=== PATIENT | female | born 1970 | race Caucasian/White ===

== ENCOUNTER 2020-03-07 13:18 | Emergency (ER) | payer BC ==
--- NOTE | 2020-03-07 13:26 | EDM.PDOC ---
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 She reports that she typically has "normal periods" which last anywhere from 5 to 7 days and has to change a pad or tampon every 5 or 6 hours. Today she has been having to change a pad/tampon every 2 hours. She has some mild low abdominal discomfort. Patient denies any fever, chills, headache, change in vision, dizziness, syncope or near syncope. Denies any chest pain, back pain, shortness of breath or cough. Denies any nausea, vomiting, diarrhea, constipation or dysuria. Has not noted any blood in urine or stool. Patient has been eating and drinking appropriately. Review of systems: As per history of present illness and below otherwise all systems reviewed and negative. Past medical history: As per history of present illness and as reviewed below otherwise noncontributory. Surgical history: As per history of present illness and as reviewed below otherwise noncontributory. Social history: See social history for further information Family history: As per history of present illness and as reviewed below otherwise noncontributory. Physical exam: General: Well developed and well nourished 49-year-old female. Alert and oriented. Nontoxic-appearing and in no acute distress. HEENT: Atraumatic, normocephalic, pupils equal and reactive bilaterally, negative for conjunctival pallor or scleral icterus, mucous membranes moist, TMs normal bilaterally, throat clear, neck supple, nontender, trachea midline. No drooling or trismus noted. No meningeal signs. No hot potato voice noted. Lungs: Clear to auscultation, breath sounds equal bilaterally, chest nontender. Heart: S1S2, regular rate and rhythm without overt murmur Abdomen: Soft, nondistended, nontender. Negative for masses or hepatospleno megaly. Negative for costovertebral tenderness. Pelvis: Stable nontender. Genitourinary: This was done with consent and a hand glove cleaner at the bedside. External genitalia is within normal limits. Cervical office is closed with minimal bleeding. Tolerated well. Skin: Intact, warm, dry. No lesions or rashes noted. Extremities: Atraumatic, moves all extremities per self without difficulty or deficits, negative for cords or calf pain. Neurovascular unremarkable. Neuro: Awake, alert, oriented. Cranial nerves II through XII unremarkable. Cerebellum unremarkable. Motor and sensory unremarkable throughout. Exam nonfocal. Notes: Ultrasound shows multiple small fibroids within the uterus. The endometrial thickness is 1.5 cm. Cervix show multiple cysts. Good blood flow to both ovaries. No free fluid is seen. Lab work is unremarkable. Patient states that she feels healthy and well and appropriate for discharge. I did give her numbers for the SINGLE WIRE SAW OPERATOR clinics for further care and management. We discussed in great length signs and symptoms that would prompt her to return to the emergency room. Supportive care measures were reviewed and discussed. Voices understanding and is agreeable to plan of care. Denies any further questions or concerns at this time. Diagnostics: CBC, CMP, UA, urine , non-OB ultrasound Therapeutics: None Prescription: None Impression: Dysfunctional uterine bleeding Plan: 1. Your lab work is within normal limits, no concerning findings at this time. Your ultrasound shows multiple small fibroids within the uterus and multiple cysts on your cervix. Continue to monitor your symptoms. If your symptoms should worsen, new symptoms develop or any of the signs and symptoms we discussed should arise please return to the emergency room or call 911 (if needed). 2. Please follow-up with one of our SINGLE WIRE SAW OPERATOR's for reevaluation and further management of your heavy menses. Definitive disposition and diagnosis as appropriate pending reevaluation and rev iew of above. - Related Data Allergies Allergy/AdvReac Type Severity Reaction Status Date / Time sulfamethoxazole Allergy Other Verified 03/07/20 14:55 [From Bactrim] trimethoprim [From Bactrim] Allergy Other Verified 03/07/20 14:55 Home Meds: Home Meds Multivitamin [Multivitamins] 1 each PO DAILY 03/07/20 [History] ED ROS GENERAL - Review of Systems Review Of Systems: Comprehensive ROS is negative, except as noted in HPI. ED EXAM - Physical Exam Exam: See Below (See dictation) Course - Vital Signs Last Recorded V/S: Last Vital Signs Temp 97.6 F 03/07/20 13:30 Pulse 100 03/07/20 13:30 Resp 17 03/07/20 13:30 BP 116/73 03/07/20 13:30 Pulse Ox 97 03/07/20 13:30 - Orders/Labs/Meds Labs: Laboratory Tests 03/07/20 03/07/20 03/07/20 Range/Units 13:40 13:40 13:50 WBC 9.03 (4.0-11.0) K/uL RBC 4.17 L (4.30-5.90) M/uL Hgb 13.0 (12.0-16.0) g/dL Hct 38.3 (36.0-46.0) % MCV 91.8 (80.0-98.0) fL MCH 31.2 (27.0-32.0) pg MCHC 33.9 (31.0-37.0) g/dL RDW Std Deviation 43.0 (28.0-62.0) fl RDW Coeff of Sera 13 (11.0-15.0) % Plt Count 241 (150-400) K/uL MPV 10.90 (7.40-12.00) fL Neut % (Auto) 72.7 (48.0-80.0) % Lymph % (Auto) 21.8 (16.0-40.0) % [place] % (Auto) 4.2 (0.0-15.0) % Eos % (Auto) 1.1 (0.0-7.0) % Baso % (Auto) 0.2 (0.0-1.5) % Neut # (Auto) 6.6 H (1.4-5.7) K/uL Lymph # (Auto) 2.0 (0.6-2.4) K/uL [place] # (Auto) 0.4 (0.0-0.8) K/uL Eos # (Auto) 0.1 (0.0-0.7) K/uL Baso # (Auto) 0.0 (0.0-0.1) K/uL Nucleated RBC % 0.0 /100WBC Nucleated RBCs # 0 K/uL Sodium (136-145) mmol/L Potassium (3.5-5.1) mmol/L Chloride (98-107) mmol/L Carbon Dioxide (21.0-32.0) mmol/L BUN (7.0-18.0) mg/dL Creatinine (0.6-1.0) mg/dL Est Cr Clr Drug Dosing Estimated GFR (MDRD) ml/min Glucose (74-106) mg/dL Calcium (8.5-10.1) mg/dL Total Bilirubin (0.2-1.0) mg/dL AST (15-37) IU/L ALT (14-63) IU/L Alkaline Phosphatase (46-116) U/L Total Protein (6.4-8.2) g/dL Albumin (3.4-5.0) g/dL Globulin (2.6-4.0) g/dL Albumin/Globulin Ratio (0.9-1.6) Urine Color RED Urine Appearance CLOUDY Urine pH 6.5 (5.0-8.0) Ur Specific [place] 1.010 (1.001-1.035) Urine Protein 30 H (NEGATIVE) mg/dL Urine Glucose (UA) NEGATIVE (NEGATIVE) mg/dL Urine Ketones NEGATIVE (NEGATIVE) mg/dL Urine Occult Blood LARGE H (NEGATIVE) Urine Nitrite NEGATIVE (NEGATIVE) Urine Bilirubin NEGATIVE (NEGATIVE) Urine Urobilinogen 0.2 (<2.0) EU/dL Ur Leukocyte Esterase NEGATIVE (NEGATIVE) Urine RBC 150-200 (0-2/HPF) Urine WBC 1-5 (0-5/HPF) Ur Squamous Epith Cells FEW Urine Bacteria NOT SEEN (NEGATIVE) Urine HCG, Qual NEGATIVE (NEGATIVE) 03/07/20 Range/Units 13:50 WBC (4.0-11.0) K/uL RBC (4.30-5.90) M/uL Hgb (12.0-16.0) g/dL Hct (36.0-46.0) % MCV (80.0-98.0) fL MCH (27.0-32.0) pg MCHC (31.0-37.0) g/dL RDW Std Deviation (28.0-62.0) fl RDW Coeff of Sera (11.0-15.0) % Plt Count (150-400) K/uL MPV (7.40-12.00) fL Neut % (Auto) (48.0-80.0) % Lymph % (Auto) (16.0-40.0) % [place] % (Auto) (0.0-15.0) % Eos % (Auto) (0.0-7.0) % Baso % (Auto) (0.0-1.5) % Neut # (Auto) (1.4-5.7) K/uL Lymph # (Auto) (0.6-2.4) K/uL [place] # (Auto) (0.0-0.8) K/uL Eos # (Auto) (0.0-0.7) K/uL Baso # (Auto) (0.0-0.1) K/uL Nucleated RBC % /100WBC Nucleated RBCs # K/uL Sodium 136 (136-145) mmol/L Potassium 3.8 (3.5-5.1) mmol/L Chloride 104 (98-107) mmol/L Carbon Dioxide 25.5 (21.0-32.0) mmol/L BUN 14 (7.0-18.0) mg/dL Creatinine 0.9 (0.6-1.0) mg/dL Est Cr Clr Drug Dosing TNP Estimated GFR (MDRD) > 60.0 ml/min Glucose 123 H (74-106) mg/dL Calcium 8.7 (8.5-10.1) mg/dL Total Bilirubin 0.3 (0.2-1.0) mg/dL AST 17 (15-37) IU/L ALT 24 (14-63) IU/L Alkaline Phosphatase 69 (46-116) U/L Total Protein 7.4 (6.4-8.2) g/dL Albumin 3.7 (3.4-5.0) g/dL Globulin 3.7 (2.6-4.0) g/dL Albumin/Globulin Ratio 1.0 (0.9-1.6) Urine Color Urine Appearance Urine pH (5.0-8.0) Ur Specific [place] (1.001-1.035) Urine Protein (NEGATIVE) mg/dL Urine Glucose (UA) (NEGATIVE) mg/dL Urine Ketones (NEGATIVE) mg/dL Urine Occult Blood (NEGATIVE) Urine Nitrite (NEGATIVE) Urine Bilirubin (NEGATIVE) Urine Urobilinogen (<2.0) EU/dL Ur Leukocyte Esterase (NEGATIVE) Urine RBC (0-2/HPF) Urine WBC (0-5/HPF) Ur Squamous Epith Cells Urine Bacteria (NEGATIVE) Urine HCG, Qual (NEGATIVE) Departure - Departure Time of Disposition: 15:37 Disposition: Home, Self-Care 01 Clinical Impression: Dysfunctional uterine bleeding - Discharge Information Instructions: Dysfunctional Uterine Bleeding Referrals: PCP,None [Primary Care Provider] - Forms: ED Department Discharge Additional Instructions: The following information is given to patients seen in the emergency department who are being discharged to home. This information is to outline your options for follow-up care. We provide all patients seen in our emergency department with a follow-up referral. The need for follow-up, as well as the timing and circumstances, are variable depending upon the specifics of your emergency department visit. If you don't have a primary care physician on staff, we will provide you with a referral. We always advise you to contact your personal physician following an emergency department visit to inform them of the circumstance of the visit and for follow-up with them and/or the need for any referrals to a consulting specialist. The emergency department will also refer you to a specialist when appropriate. This referral assures that you have the opportunity for follow-up care with a specialist. All of these measure are taken in an effort to provide you with optimal care, which includes your follow-up. Under all circumstances we always encourage you to contact your private physician who remains a resource for coordinating your care. When calling for follow-up care, please make the office aware that this follow-up is from your recent emergency room visit. If for any reason you are refused follow-up, please contact the [facility] at and asked to speak to the emergency department charge nurse. [facility] [address] [place] [id number] [address] Thank you for choosing the [facility] emergency department in [place] for your medical needs today. It was a pleasure caring for you. You were seen in the emergency department for heavy vaginal bleeding 1. Your lab work is within normal limits, no concerning findings at this time. Your ultrasound shows multiple small fibroids within the uterus and multiple cysts on your cervix. Continue to monitor your symptoms. If your symptoms should worsen, new symptoms develop or any of the signs and symptoms we discussed should arise please return to the emergency room or call 911 (if needed). 2. Please follow-up with one of our SINGLE WIRE SAW OPERATOR's for reevaluation and further management of your heavy menses. Sepsis Event Note (ED) - Focused Exam Vital Signs: Vital Signs Temp Pulse Resp BP Pulse Ox 03/07/20 13:30 97.6 F 100 17 116/73 97
[2020-03-07 14:20] LABS: BLOOD UREA NITROGEN,BUN 14 mg/dL (7.0-18.0); CARBON DIOXIDE,CO2 25.5 mmol/L (21.0-32.0); CHLORIDE,CL 104 mmol/L (98-107); GLUCOSE RANDOM 123 mg/dL (74-106); POTASSIUM,K 3.8 mmol/L (3.5-5.1); SODIUM,NA 136 mmol/L (136-145)
--- NOTE | 2020-03-07 15:30 | US ---
Pelvic ultrasound: Multiple real-time images were obtained transvaginally. Comparison: No prior pelvic imaging is available. Cervix shows multiple cysts. Uterus is anteverted. Multiple small fibroids are seen within the uterus. Largest measure 2.2 cm, 2.6 cm, 2.1 cm and 3.2 cm. Endometrial thickness is 1.5 cm. Follicles are seen within both ovaries. Small cyst is noted within the left ovary measuring 2.5 cm believed to be physiologic. No free fluid is seen. Measurements: Uterus: Length 9.7 cm, AP height 6.2 cm,transverse width 7.2 sonometer Right ovary: 2.7 x 1.6 x 2.1 cm Left ovary: 3.3 x 2.4 x 2.8 sonometer Impression: 1. Multiple small fibroids within the uterus. 2. Endometrial thickness at 1.5 cm. 3. Nabothian cysts. 4. Other findings believed to be within normal limits as noted above. Diagnostic code #3 This report was dictated in MDT
== END 2020-03-07 15:16 | disposition home or self-care (01) ==
LOC: MW.ED 13:18
DX: N93.8 Other specified abnormal uterine and vaginal bleeding (principal); Z88.2 Allergy status to sulfonamides; Z79.899 Other long term (current) drug therapy
CPT/HCPCS: 36415; 76830; 76830-26; 80053; 81001; 81025; 85025; 99284-25

== ENCOUNTER 2020-05-06 10:27 | Day surgery (SDC) | payer BC ==
[~2020-05-06 10:27] MED LIST: Glycopyrrolate 0.2 MG/ML SDV ONE; Lactated Ringers 1,000 ML IV SCH; Midazolam 1 MG/ML 2 ML SDV ONE; Propofol 200 MG/20 ML SDV ONE; Sodium Chloride 0.9% 10 ML SDV IV PRN; Sodium Chloride 0.9% 10 ML Syringe FLUSH PRN; Sodium Chloride 0.9% 2.5 ML Syringe FLUSH PRN
--- NOTE | 2020-05-06 11:36 | PCM.OPNOTE ---
- General Post-Op/Procedure Note Date of Surgery/Procedure: 05/06/20 Operative Procedure(s): Diagnostic colonoscopy Findings: Grade 2 hemorrhoids. Pre Op Diagnosis: Bowel habit changes. Post-Op Diagnosis: Grade 2 hemorrhoids. Anesthesia Technique: MAC Primary Surgeon: Lilliam Vee Complications: None Condition: Stable
--- NOTE | 2020-05-06 11:49 | PCM.POSTAN ---
POST ANESTHESIA ASSESSMENT - MENTAL STATUS Mental Status: Alert, Oriented - VITAL SIGNS Vital Signs: Last Vital Signs Temp 98.2 F 05/06/20 10:35 Pulse 93 05/06/20 11:46 Resp 18 05/06/20 11:46 BP 106/71 05/06/20 11:46 Pulse Ox 97 05/06/20 11:46 - RESPIRATORY Respiratory Status: Respiratory Rate WNL, Airway Patent, O2 Saturation Stable - CARDIOVASCULAR CV Status: Pulse Rate WNL, Blood Pressure Stable - GASTROINTESTINAL GI Status: No Symptoms - POST OP HYDRATION Hydration Status: Adequate & Stable
--- NOTE | 2020-05-06 11:49 | PCM.PREANE ---
Preanesthetic Assessment - Anesthesia/Transfusion/Family Hx Anesthesia History: Prior Anesthesia Without Reaction Family History of Anesthesia Reaction: No Transfusion History: No Prior Transfusion(s) - Review of Systems General: No Symptoms Pulmonary: No Symptoms Cardiovascular: No Symptoms Neurological: No Symptoms Other: Reports: None - Physical Assessment NPO Status Date: 05/05/20 Vital Signs: Last Vital Signs Temp 98.2 F 05/06/20 10:35 Pulse 93 05/06/20 11:46 Resp 18 05/06/20 11:46 BP 106/71 05/06/20 11:46 Pulse Ox 97 05/06/20 11:46 Height: 5 ft 5 in Weight: 75.296 kg ASA Class: 2 Mental Status: Alert & Oriented x3 Airway Class: Mallampati = 2 Dentition: Reports: Normal Dentition ROM/Head Extension: Full Lungs: Clear to Auscultation, Normal Respiratory Effort Cardiovascular: Regular Rate, Regular Rhythm - Lab Values: Laboratory Last Values Urine HCG, Qual NEGATIVE (NEGATIVE) 05/06/20 10:47 - Allergies Allergies/Adverse Reactions: Allergies Allergy/AdvReac Type Severity Reaction Status Date / Time sulfamethoxazole Allergy Rash Verified 04/30/20 08:10 [From Bactrim] trimethoprim [From Bactrim] Allergy Rash Verified 04/30/20 08:10 - Blood Blood Available: No - Anesthesia Plan Pre-Op Medication Ordered: None - Acknowledgements Anesthesia Type Planned: General Anesthesia Pt an Appropriate Candidate for the Planned Anesthesia: Yes Alternatives and Risks of Anesthesia Discussed w Pt/Guardian: Yes Pt/Guardian Understands and Agrees with Anesthesia Plan: Yes PreAnesthesia Questionnaire HEENT History: Reports: Allergic Rhinitis, Other (See Below) Other HEENT History: wears glasses Cardiovascular History: Reports: None Respiratory History: Reports: None Gastrointestinal History: Reports: None Genitourinary History: Reports: None ANALYTICS LEADER History: Reports: Other (See Below) Other OB/BYN History: excision of bartholin cyst Musculoskeletal History: Reports: Back Pain, Chronic Neurological History: Reports: None Psychiatric History: Reports: None Endocrine/Metabolic History: Reports: None Hematologic History: Reports: None Immunologic History: Reports: None Oncologic (Cancer) History: Reports: None Dermatologic History: Reports: None - Infectious Disease History Infectious Disease History: Reports: None - Past Surgical History Head Surgeries/Procedures: Reports: None HEENT Surgical History: Reports: Adenoidectomy, Tonsillectomy Cardiovascular Surgical History: Reports: None Respiratory Surgical History: Reports: None GI Surgical History: Reports: Cholecystectomy Female Surgical History: Reports: None Endocrine Surgical History: Reports: None Neurological Surgical History: Reports: None Musculoskeletal Surgical History: Reports: None Oncologic Surgical History: Reports: None Dermatological Surgical History: Reports: None - SUBSTANCE USE Smoking Status *Q: Never Smoker Days Per Week of Alcohol Use: 0 Recreational Drug Use History: No - HOME MEDS Home Medications: Home Meds Cholecalciferol (Vitamin D3) [Vitamin D3] 1 tab PO DAILY 04/30/20 [History] Loratadine [Claritin] 1 tab PO DAILY PRN 04/30/20 [History] Multivit-Min/Iron/Folic/[id number] [Hair, Skin and Nails Tablet] 1 tab PO DAILY 04/30/20 [History] Multivit-Min/Iron/Folic/Lutein [Centrum Silver Women Tablet] 1 tab PO DAILY 04/30/20 [History] Vitamin B Complex 1 tab PO DAILY 04/30/20 [History] - CURRENT (IN HOUSE) MEDS Current Meds: Current Medications Lactated Ringer's (Ringers, Lactated) 1,000 mls @ 125 mls/hr IV ASDIRECTED JYOTI Last Admin: 05/06/20 11:29 Dose: 125 mls/hr Documented by: Sodium Chloride (Saline Flush) 10 ml FLUSH ASDIRECTED PRN PRN Reason: Keep Vein Open Sodium Chloride (Saline Flush) 2.5 ml FLUSH ASDIRECTED PRN PRN Reason: Keep Vein Open Sodium Chloride (Saline Flush) 10 ml FLUSH ASDIRECTED PRN PRN Reason: Keep Vein Open Sodium Chloride (Saline Flush) 2.5 ml FLUSH ASDIRECTED PRN PRN Reason: Keep Vein Open Sodium Chloride (Normal Saline) 10 ml IV ASDIRECTED PRN PRN Reason: IV Use Discontinued Medications Glycopyrrolate (Robinul) Confirm Administered Dose 0.2 mg .ROUTE .STK-MED ONE Stop: 05/06/20 07:33 Glycopyrrolate (Robinul) Confirm Administered Dose 0.2 mg .ROUTE .STK-MED ONE Stop: 05/06/20 07:33 Midazolam HCl (Versed 1 Mg/Ml) Confirm Administered Dose 2 mg .ROUTE .STK-MED ONE Stop: 05/06/20 07:30 Midazolam HCl (Versed 1 Mg/Ml) Confirm Administered Dose 2 mg .ROUTE .STK-MED ONE Stop: 05/06/20 07:30 Propofol (Diprivan 20 Ml) Confirm Administered Dose 600 mg .ROUTE .STK-MED ONE Stop: 05/06/20 07:30
--- NOTE | 2020-05-06 11:50 | PCM48HPAN ---
Post Anesthesia Note - EVALUATION WITHIN 48HRS OF ANESTHETIC Vital Signs in Normal Range: Yes Patient Participated in Evaluation: Yes Respiratory Function Stable: Yes Airway Patent: Yes Cardiovascular Function Stable: Yes Hydration Status Stable: Yes Pain Control Satisfactory: Yes Nausea and Vomiting Control Satisfactory: Yes Mental Status Recovered: Yes Vital Signs: Last Vital Signs Temp 98.2 F 05/06/20 10:35 Pulse 93 05/06/20 11:46 Resp 18 05/06/20 11:46 BP 106/71 05/06/20 11:46 Pulse Ox 97 05/06/20 11:46
--- NOTE | 2020-05-07 17:21 | OR ---
SURGEON: LILLIAM VEE MD DATE OF PROCEDURE: 05/06/2020 PREOPERATIVE DIAGNOSES: Change in bowel habits, possible perianal mass. POSTOPERATIVE DIAGNOSIS: Grade 2 hemorrhoids. PROCEDURE PERFORMED: Diagnostic colonoscopy. PRIMARY SURGEON: Lilliam Vee MD ANESTHESIA: MAC. INSTRUMENT USED: Olympus colonoscope. EXTENT OF EXAM: To the cecum. PREPARATION: Good. LIMITATIONS: None. INDICATIONS FOR EXAMINATION: The patient is a 49-year-old female who presented with a change in her bowel habits as well as concerns for a possible perianal mass. Digital rectal exam was normal within the clinic. The decision was made to proceed with diagnostic colonoscopy. I explained the procedure, expected perioperative course, and risks. She verbalized understanding and wishes to proceed. PROCEDURE IN DETAIL: The patient was brought into the endoscopy suite and placed in the left lateral decubitus position. A time-out was completed verifying the patient's name, age, date of , allergies, and procedure to be performed. Monitored anesthesia care was induced and continuous oxygen was provided via face mask throughout the procedure. After adequate sedation was achieved, a digital rectal exam was performed. This exam was grossly normal. A well-lubricated colonoscope was inserted in the rectum and advanced under direct visualization to the level of the cecum. The cecum was identified by both visual and anatomic landmarks. A photograph was taken of the cecal cap; however, I was unable to retroflex the scope within the cecum due to looping of the scope more proximally. The scope was then fully withdrawn while examining the color, texture, anatomy, and integrity of the mucosa from the cecum to the anal canal. The colonic mucosa appeared normal. The scope was then brought into the rectum and retroflexed to allow visualization of the anal canal opening. The patient was noted to have enlarged hemorrhoidal columns consistent with grade 2 hemorrhoids. The scope was then straightened out and fully withdrawn. The cecum to anus time was 6 minutes. The patient tolerated the procedure well and was transferred to the PACU in stable condition. ENDOSCOPIC DIAGNOSIS: Grade 2 hemorrhoids. RECOMMENDATIONS: I visited with the patient in the PACU regarding my findings. She would like to discuss her hemorrhoids further. She can come back and see me in clinic. Otherwise, the patient will be due for repeat colonoscopy in 10 years. CARLOS / MIRA /[id number]
== END 2020-05-06 12:30 | disposition home or self-care (01) ==
LOC: MW.SDS 10:27
PROVIDERS: ATTEND Surgery
DX: K64.1 Second degree hemorrhoids (principal); F32.9 Major depressive disorder, single episode, unspecified; K62.89 Other specified diseases of anus and rectum; Z88.1 Allergy status to other antibiotic agents; Z88.2 Allergy status to sulfonamides
CPT/HCPCS: 00811; 81025; J2250; J2704; J3490; J7120

== ENCOUNTER 2020-07-13 18:19 | Emergency (ER) | payer BC ==
[2020-07-13] MEDS ORDERED: Sodium Chloride 0.9% 1,000 ML IV ONE (19:24)
[2020-07-13 19:37] LABS: BLOOD UREA NITROGEN,BUN 8 mg/dL (7.0-18.0); CARBON DIOXIDE,CO2 26.3 mmol/L (21.0-32.0); CHLORIDE,CL 100 mmol/L (98-107); GLUCOSE RANDOM 108 mg/dL (74-106); LIPASE 79 U/L (73-393); POTASSIUM,K 3.7 mmol/L (3.5-5.1); SODIUM,NA 135 mmol/L (136-145)
--- NOTE | 2020-07-13 19:40 | EDM.PDOC ---
ED HPI GENERAL MEDICAL PROBLEM - General Chief Complaint: General Stated Complaint: ABDOMINAL PAIN Time Seen by Provider: 07/13/20 18:23 Source of Information: Reports: Patient History Limitations: Reports: No Limitations - History of Present Illness INITIAL COMMENTS - FREE TEXT/NARRATIVE: HISTORY AND PHYSICAL: History of present illness: Patient is a 49-year-old female who presents to the emergency room today with concern of right lower quadrant/right pelvic pain/ abdominal pain that has been ongoing over the past 2 to 3 days. Patient states she really noticed any the abdominal pain worsening yesterday and into today. Patient states that she also feels that she has had a low-grade fever and has been consistently around 99 at home but states that she has never reached a full fever. Patient states she does have a decrease in appetite but denies any vomiting. Patient states that she did have an endometrial embolism done due to fibroids that were bleeding excessively at the beginning of June but did not have any issues following the procedure and is unsure if this is related. Patient states she does have a history of her gallbladder removed but denies any other health history/abdominal surgeries. Patient denies chills, chest pain, shortness of breath, or cough. Denies headache, neck stiff ness, change in vision, syncope, or near syncope. Denies nausea, vomiting, diarrhea, constipation, or dysuria. Has not noted any blood in urine or stool. Patient has been eating and drinking appropriately. Review of systems: As per history of present illness and below otherwise all systems reviewed and negative. Past medical history: As per history of present illness and as reviewed below otherwise noncontributory. Surgical history: As per history of present illness and as reviewed below otherwise noncontributory. Social history: See social history for further information Family history: As per history of present illness and as reviewed below otherwise noncontributory. Physical exam: General: Patient is alert, oriented, and in no acute distress. Patient sitting comfortably on exam table. Vitals stable and reviewed by me HEENT: Atraumatic, normocephalic, pupils equal and reactive bilaterally, negative for conjunctival pallor or scleral icterus, mucous membranes moist, TMs normal bilaterally, throat clear, neck supple, nontender, trachea midline. No drooling or trismus noted. No meningeal signs. No hot potato voice noted. Lungs: Clear to auscultation, breath sounds equal bilaterally, chest nontender. Heart: S1S2, regular rate and rhythm without overt murmur Abdomen: Soft, nondistended, mild right lower quadrant/right suprapubic tenderness without guarding. Negative rebound. Negative bhandari sign. Negative for masses or hepatosplenomegaly. Negative for costovertebral tenderness. Pelvis: Stable nontender. Genitourinary: Relocation Specialist at bedside Ree GutierresAriana External genitalia is grossly unremarkable. There is a small amount of white vaginal discharge in the vaginal vault. Negative cervical motion tenderness. Negative chandelier sign. Negative uterine tenderness with possible mild discomfort of the right adnexal area. Rectal: Deferred. Skin: Intact, warm, dry. No lesions or rashes noted. Extremities: Atraumatic, negative for cords or calf pain. Neurovascular unremarkable. Neuro: Awake, alert, oriented. Cranial nerves II through XII unremarkable. Cerebellum unremarkable. Motor and sensory unremarkable throughout. Exam nonfocal. Notes: Dr. Hudson verbally involved in patient care. Signs and symptoms that would prompt return to the ED thoroughly discussed with patient. Discussed importance for follow-up with a primary care provider in women's health provider. Voices understanding and is agreeable to plan of care. Denies any further questions or concerns at this time. Diagnostics: CBC, CMP, UA, Lipase, Abd/Pelvic CT w cont, [employer]: NS, Toradol Prescription: None Impression: Abdominal pain, unspecified Plan: 1. You can alternate ibuprofen and Tylenol as directed for pain and discomfort. 2. Follow-up with your primary care provider and women's health provider as discussed. Return to the ED as needed and as discussed. Definitive disposition and diagnosis as appropriate pending reevaluation and review of above. Abdomen Pain Score (Numeric/FACES): 4 - Related Data Allergies Allergy/AdvReac Type Severity Reaction Status Date / Time sulfamethoxazole Allergy Rash Verified 07/13/20 18:42 [From Bactrim] trimethoprim [From Bactrim] Allergy Rash Verified 07/13/20 18:42 Home Meds: Home Meds Cholecalciferol (Vitamin D3) [Vitamin D3] 1 tab PO DAILY 04/30/20 [History] Loratadine [Claritin] 1 tab PO DAILY PRN 04/30/20 [History] Multivit-Min/Iron/Folic/Zev223 [Hair, Skin and Nails Tablet] 1 tab PO DAILY 04/30/20 [History] Multivit-Min/Iron/Folic/Lutein [Centrum Silver Women Tablet] 1 tab PO DAILY 04/30/20 [History] Vitamin B Complex 1 tab PO DAILY 04/30/20 [History] Past Medical History HEENT History: Reports: Allergic Rhinitis, Other (See Below) Other HEENT History: wears glasses Cardiovascular History: Reports: None Respiratory History: Reports: None Gastrointestinal History: Reports: None Genitourinary History: Reports: None FIRE SUPPORT SPECIALIST History: Reports: Other (See Below) Other FIRE SUPPORT SPECIALIST History: excision of bartholin cyst Musculoskeletal History: Reports: Back Pain, Chronic Neurological History: Reports: None Psychiatric History: Reports: None Endocrine/Metabolic History: Reports: None Hematologic History: Reports: None Immunologic History: Reports: None Oncologic (Cancer) History: Reports: None Dermatologic History: Reports: None - Infectious Disease History Infectious Disease History: Reports: Chicken Pox, Measles, Mumps - Past Surgical History Head Surgeries/Procedures: Reports: None HEENT Surgical History: Reports: Adenoidectomy, Tonsillectomy Cardiovascular Surgical History: Reports: None Respiratory Surgical History: Reports: None GI Surgical History: Reports: Cholecystectomy Female Surgical History: Reports: None Endocrine Surgical History: Reports: None Neurological Surgical History: Reports: None Musculoskeletal Surgical History: Reports: None Oncologic Surgical History: Reports: None Dermatological Surgical History: Reports: None Social & Family History - Family History Family Medical History: No Pertinent Family History - Tobacco Use Tobacco Use Status *Q: Never Tobacco User - Caffeine Use Caffeine Use: Reports: None - Recreational Drug Use Recreational Drug Use: No ED ROS GENERAL - Review of Systems Review Of Systems: Comprehensive ROS is negative, except as noted in HPI. ED EXAM, GENERAL - Physical Exam Exam: See Below (see dictation) Course - Vital Signs Last Recorded V/S: Last Vital Signs Temp 99.0 F 07/13/20 18:38 Pulse 101 H 07/13/20 20:31 Resp 17 07/13/20 20:31 BP 113/74 07/13/20 20:31 Pulse Ox 100 07/13/20 20:31 - Orders/Labs/Meds Labs: Laboratory Tests 07/13/20 07/13/20 07/13/20 Range/Units 19:00 19:00 19:04 WBC 13.60 H (4.0-11.0) K/uL RBC 4.16 L (4.30-5.90) M/uL Hgb 12.6 (12.0-16.0) g/dL Hct 38.3 (36.0-46.0) % MCV 92.1 (80.0-98.0) fL MCH 30.3 (27.0-32.0) pg MCHC 32.9 (31.0-37.0) g/dL RDW Std Deviation 43.6 (28.0-62.0) fl RDW Coeff of Sera 13 (11.0-15.0) % Plt Count 277 (150-400) K/uL MPV 11.10 (7.40-12.00) fL Neut % (Auto) 77.4 (48.0-80.0) % Lymph % (Auto) 14.3 L (16.0-40.0) % Hardy % (Auto) 7.4 (0.0-15.0) % Eos % (Auto) 0.7 (0.0-7.0) % Baso % (Auto) 0.2 (0.0-1.5) % Neut # (Auto) 10.5 H (1.4-5.7) K/uL Lymph # (Auto) 2.0 (0.6-2.4) K/uL Hardy # (Auto) 1.0 H (0.0-0.8) K/uL Eos # (Auto) 0.1 (0.0-0.7) K/uL Baso # (Auto) 0.0 (0.0-0.1) K/uL Nucleated RBC % 0.0 /100WBC Nucleated RBCs # 0 K/uL Lactate (0.20-2.00) mmol/L Sodium (136-145) mmol/L Potassium (3.5-5.1) mmol/L Chloride (98-107) mmol/L Carbon Dioxide (21.0-32.0) mmol/L BUN (7.0-18.0) mg/dL Creatinine (0.6-1.0) mg/dL Est Cr Clr Drug Dosing mL/min Estimated GFR (MDRD) ml/min Glucose (74-106) mg/dL Calcium (8.5-10.1) mg/dL Total Bilirubin (0.2-1.0) mg/dL AST (15-37) IU/L ALT (14-63) IU/L Alkaline Phosphatase (46-116) U/L Total Protein (6.4-8.2) g/dL Albumin (3.4-5.0) g/dL Globulin (2.6-4.0) g/dL Albumin/Globulin Ratio (0.9-1.6) Lipase (73-393) U/L Urine Color YELLOW Urine Appearance CLEAR Urine pH 7.0 (5.0-8.0) Ur Specific [place] 1.010 (1.001-1.035) Urine Protein NEGATIVE (NEGATIVE) mg/dL Urine Glucose (UA) NEGATIVE (NEGATIVE) mg/dL Urine Ketones NEGATIVE (NEGATIVE) mg/dL Urine Occult Blood NEGATIVE (NEGATIVE) Urine Nitrite NEGATIVE (NEGATIVE) Urine Bilirubin NEGATIVE (NEGATIVE) Urine Urobilinogen 0.2 (<2.0) EU/dL Ur Leukocyte Esterase NEGATIVE (NEGATIVE) Urine HCG, Qual NEGATIVE (NEGATIVE) 07/13/20 07/13/20 Range/Units 19:04 19:40 WBC (4.0-11.0) K/uL RBC (4.30-5.90) M/uL Hgb (12.0-16.0) g/dL Hct (36.0-46.0) % MCV (80.0-98.0) fL MCH (27.0-32.0) pg MCHC (31.0-37.0) g/dL RDW Std Deviation (28.0-62.0) fl RDW Coeff of Sera (11.0-15.0) % Plt Count (150-400) K/uL MPV (7.40-12.00) fL Neut % (Auto) (48.0-80.0) % Lymph % (Auto) (16.0-40.0) % Hardy % (Auto) (0.0-15.0) % Eos % (Auto) (0.0-7.0) % Baso % (Auto) (0.0-1.5) % Neut # (Auto) (1.4-5.7) K/uL Lymph # (Auto) (0.6-2.4) K/uL Hardy # (Auto) (0.0-0.8) K/uL Eos # (Auto) (0.0-0.7) K/uL Baso # (Auto) (0.0-0.1) K/uL Nucleated RBC % /100WBC Nucleated RBCs # K/uL Lactate 0.6 (0.20-2.00) mmol/L Sodium 135 L (136-145) mmol/L Potassium 3.7 (3.5-5.1) mmol/L Chloride 100 (98-107) mmol/L Carbon Dioxide 26.3 (21.0-32.0) mmol/L BUN 8 (7.0-18.0) mg/dL Creatinine 0.8 (0.6-1.0) mg/dL Est Cr Clr Drug Dosing 73.35 mL/min Estimated GFR (MDRD) > 60.0 ml/min Glucose 108 H (74-106) mg/dL Calcium 9.1 (8.5-10.1) mg/dL Total Bilirubin 0.4 (0.2-1.0) mg/dL AST 15 (15-37) IU/L ALT 20 (14-63) IU/L Alkaline Phosphatase 88 (46-116) U/L Total Protein 7.9 (6.4-8.2) g/dL Albumin 3.7 (3.4-5.0) g/dL Globulin 4.2 H (2.6-4.0) g/dL Albumin/Globulin Ratio 0.9 (0.9-1.6) Lipase 79 (73-393) U/L Urine Color Urine Appearance Urine pH (5.0-8.0) Ur Specific [place] (1.001-1.035) Urine Protein (NEGATIVE) mg/dL Urine Glucose (UA) (NEGATIVE) mg/dL Urine Ketones (NEGATIVE) mg/dL Urine Occult Blood (NEGATIVE) Urine Nitrite (NEGATIVE) Urine Bilirubin (NEGATIVE) Urine Urobilinogen (<2.0) EU/dL Ur Leukocyte Esterase (NEGATIVE) Urine HCG, Qual (NEGATIVE) Meds: Medications Discontinued Medications Generic Name Dose Route Start Last Admin Trade Name Freq PRN Reason Stop Dose Admin Sodium Chloride 1,000 mls @ 999 mls/hr 07/13/20 19:24 07/13/20 19:41 Normal Saline IV 07/13/20 20:24 999 mls/hr STAT ONE Administration Iopamidol 100 ml 12/06/20 20:14 07/13/20 20:16 Isovue Multipack-370 (76%) IVPUSH 07/13/20 20:15 100 ml ONETIME STA Administration Ketorolac Tromethamine 30 mg 07/13/20 21:11 07/13/20 21:15 Toradol IVPUSH 07/13/20 21:12 30 mg ONETIME ONE Administration Departure - Departure Time of Disposition: 22:27 Disposition: Home, Self-Care 01 Clinical Impression: Abdominal pain Qualifiers: Abdominal location: right lower quadrant Qualified Code(s): R10.31 - Right lower quadrant pain - Discharge Information Instructions: Uterine Fibroids, [id number], Ovarian Cyst, [id number] Referrals: PCP,None [Primary Care Provider] - Forms: ED Department Discharge Additional Instructions: The following information is given to patients seen in the emergency department who are being discharged to home. This information is to outline your options for follow-up care. We provide all patients seen in our emergency department with a follow-up referral. The need for follow-up, as well as the timing and circumstances, are variable depending upon the specifics of your emergency department visit. If you don't have a primary care physician on staff, we will provide you with a referral. We always advise you to contact your personal physician following an emergency department visit to inform them of the circumstance of the visit and for follow-up with them and/or the need for any referrals to a consulting specialist. The emergency department will also refer you to a specialist when appropriate. This referral assures that you have the opportunity for follow-up care with a specialist. All of these measure are taken in an effort to provide you with optimal care, which includes your follow-up. Under all circumstances we always encourage you to contact your private physician who remains a resource for coordinating your care. When calling for follow-up care, please make the office aware that this follow-up is from your recent emergency room visit. If for any reason you are refused follow-up, please contact the [facility] Emergency Department at and asked to speak to the emergency department charge nurse. [facility] [address] [place] [id number] [facility] [address] [place] [address] [facility] [address] [place] [address] 1. You can alternate ibuprofen and Tylenol as directed for pain and discomfort. 2. Follow-up with your primary care provider and women's health provider as discussed. Return to the ED as needed and as discussed. Sepsis Event Note (ED) - Evaluation Sepsis Screening Result: No Definite Risk - Focused Exam Vital Signs: Vital Signs Temp Pulse Resp BP Pulse Ox 07/13/20 20:31 101 H 17 113/74 100 07/13/20 18:38 99.0 F 95 16 119/79 97
[2020-07-13] MEDS ORDERED: Iopamidol 755 MG/ML 500 ML Multipack Bottle IVPUSH STA (20:14)
--- NOTE | 2020-07-13 20:45 | CT ---
INDICATION: Right lower quadrant pain, leukocytosis, fever. TECHNIQUE: CT of the abdomen and pelvis with 100 cc Isovue 370 IV contrast. Coronal and sagittal reconstructions. COMPARISON: None. FINDINGS: The liver, spleen, pancreas, and adrenal glands are negative. Hepatic and portal veins are patent. Cholecystectomy. Symmetric enhancement of the kidneys. Few tiny low-attenuation lesions in the left kidney most likely represent cysts. No hydronephrosis. No obstructing urinary calculi. The bladder is normal in appearance. The uterus is prominent in size and heterogeneously enhancing. This could be related to fibroids but is not well characterized on this exam. Low-attenuation lesion in the region of the cervix most likely represents a nabothian cyst. There is a 4.5 cm cystic lesion in the left adnexa (series 2, image 98). No abnormality within the right adnexa. No bowel dilation. Negative appendix. No intraperitoneal free air. Trace free fluid in the pelvis is likely physiologic. No lymphadenopathy. Benign-appearing sclerosis about the anterior aspect of both sacroiliac joints. Disc space narrowing at L5-S1. The lung bases are clear. IMPRESSION: 1. Mildly prominent and heterogeneously enhancing uterus. This could be related to fibroids but is not well characterized on this exam. This could be further evaluated with pelvic ultrasound. 2. 4.5 cm cystic lesion in the left adnexa. This could also be evaluated with pelvic ultrasound. 3. No other acute findings in the abdomen or pelvis. Please note that all CT scans at this facility use dose modulation, iterative reconstruction, and/or weight-based dosing when appropriate to reduce radiation dose to as low as reasonably achievable. Dictated by Vania Peng MD @ Jul 13 2020 8:32PM Signed by Dr. Vania Peng @ Jul 13 2020 8:43PM
[2020-07-13] MEDS ORDERED: Ketorolac 30 MG/ML SDV IVPUSH ONE (21:11)
--- NOTE | 2020-07-13 22:14 | US ---
INDICATION: Right-sided abdominal pain COMPARISON: CT abdomen pelvis with contrast 07/13/2020, ultrasound pelvis 03/07/2020 TECHNIQUE: Multiple grayscale sonographic images of the pelvis. Scan was performed transvaginally. FINDINGS: The uterus measures 9.5 x 5.4 x 6.6 cm. Normal endometrial thickness, measuring up to 1.1 cm. Multiple uterine fibroids: A 2.0 cm subserosal fibroid in the posterior uterine body, a 1.4 cm submucosal fibroid in the posterior uterine body, a 1.9 cm intramural fibroid in the anterior uterine body, and a 2.0 cm intramural fibroid in the right uterine fundus. Some of the fibroids may be decreased in size, however direct comparison is difficult due to differences in measurement technique. Nabothian cysts are noted in the posterior cervix. The right ovary measures 1.4 x 1.5 x 1.4 cm and appears unremarkable. Intact vascular flow is demonstrated to the right ovary by spectral Doppler. The left ovary measures 3.6 x 4.5 x 5.2 cm and contains a 4 cm cyst. Intact vascular flow demonstrated to the left ovary by spectral Doppler. No significant free fluid is demonstrated in the pelvis. IMPRESSION: 1. Fibroid uterus, as above. 2. A 4 cm left ovarian cyst. No evidence of ovarian torsion. 3. Normal right ovary. Dictated by Portia Huitron MD @ Jul 13 2020 10:02PM Signed by Dr. Portia Huitron @ Jul 13 2020 10:13PM
== END 2020-07-13 22:31 | disposition home or self-care (01) ==
LOC: MW.ED 18:19
DX: R10.31 Right lower quadrant pain (principal); Z88.2 Allergy status to sulfonamides
CPT/HCPCS: 36415; 74177; 76830; 80053; 81003; 81025; 83605; 83690; 85025; 96374; 99284; J1885; J7030; Q9967